=== PATIENT | female | born 1940 | race Caucasian/White ===

== ENCOUNTER 2020-01-14 21:59 | Emergency (ER) | payer MEDICARE ==
[~2020-01-14] VITALS: Ht 154.9 cm; Wt 90.3 kg
--- NOTE | 2020-01-14 22:19 | NUR ---
PT CAME TO THE ED C/O HEADACHE AND BUMP ON L SIDE OF HEAD S/P HITTING HEAD ON WALL WHILE GARDENING. PT DENIES KO. PT AAOX4, VSS, RESPIRATIONS EVEN AND UNLABORED ON RA W/ NAD NOTED. PT CONNECTED TO THE MANAGEMENT TECHNICIAN AND POX
--- NOTE | 2020-01-14 22:30 | NUR ---
PT TAKEN TO RADIOLOGY FOR CT
--- NOTE | 2020-01-14 22:40 | NUR ---
PT BACK FROM RADIOLOGY
--- NOTE | 2020-01-14 23:43 | NUR ---
Patient discharged to home in stable condition. Written and verbal after care instructions given. Patient verbalizes understanding of instruction.
[2020-01-14 23:44] VITALS: BP 124/84
== END 2020-01-14 23:45 | disposition home or self-care (01) ==
LOC: ER 22:05
DX: S00.03XA Contusion of scalp, initial encounter (principal); I10 Essential (primary) hypertension; E78.5 Hyperlipidemia, unspecified; E11.9 Type 2 diabetes mellitus without complications; E03.9 Hypothyroidism, unspecified; W22.8XXA Striking against or struck by other objects, initial encounter; Y93.H2 Activity, gardening and landscaping; Y92.59 Other trade areas as the place of occurrence of the external cause; Y99.8 Other external cause status
CPT/HCPCS: 70450-TC